=== PATIENT | female | born 1985 | race Caucasian/White ===

== ENCOUNTER 2016-07-12 05:50 | Inpatient (IN) | payer MEDICAID ==
[~2016-07-12] VITALS: Ht 160 cm; Wt 73.7 kg
[~2016-07-12 05:50] MED LIST: FERR324T6 PO; PNV1TABL43 PO
[2016-07-12] MEDS ORDERED: CEFAZOLIN 2 GM/50 ML (PMX) 50 ML IV SCH (06:00)
[2016-07-12] MEDS ORDERED: OXYTOCIN 30 UNITS/LR 500 ML IV PRN ×2 (06:00→08:30)
[2016-07-12] MEDS ORDERED: METHYLERGONOVINE 0.2 MG INJ IM PRN ×2 (06:00→08:30)
[2016-07-12] MEDS ORDERED: CARBOPROST 250 MCG INJ IM PRN ×2 (06:00→08:30)
[2016-07-12] MEDS ORDERED: MISOPROSTOL 200 MCG TAB PR PRN ×2 (06:00→08:30)
[2016-07-12] MEDS ORDERED: OXYTOCIN 30 UNITS/LR 500 ML IV SCH (06:00)
[2016-07-12 06:16] LABS: ADD SCAN DIFF NO
[2016-07-12 06:22] VITALS: Ht 160 cm; Wt 73.7 kg
[2016-07-12 06:25] LABS: BASOPHILS % 0.4 % (0.0-2.0); EOSINOPHILS # 0.2 10^3/ul (0.0-0.5); HEMATOCRIT 38.3 % (37.0-47.0); HEMOGLOBIN 13.2 g/dl (12.0-16.0); LYMPHOCYTES # 2.7 10^3/ul (0.8-2.9); MEAN CORPUSCULAR HEMOGLOBIN 29.6 pg (29.0-33.0); MEAN CORPUSCULAR HGB CONC 34.5 g/dl (32.0-37.0); MEAN CORPUSCULAR VOLUME 85.9 fl (82.0-101.0); MEAN PLATELET VOLUME 11.9 fl (7.4-10.4); MONOCYTE # 0.6 10^3/ul (0.3-0.9); NEUTROPHIL # 5.6 10^3/ul (1.6-7.5); NEUTROPHILS % 60.3 % (39.0-77.0); PLATELET COUNT 172 10^3/UL (140-415); RED BLOOD COUNT 4.46 10^6/ul (4.20-5.40); RED CELL DISTRIBUTION WIDTH 15.6 % (11.5-14.5); WHITE BLOOD COUNT 9.2 10^3/ul (4.8-10.8)
[2016-07-12 06:38] LABS: INR 0.84; PROTIME 11.5 Sec (12.2-14.2); PT RATIO 0.9
[2016-07-12 06:39] LABS: PARTIAL THROMBOPLASTIN TIME 25.9 Sec (25.0-35.0)
[2016-07-12] MEDS ORDERED: CITRIC ACID/SODIUM CITRATE 15 ML CUP ONE (07:18)
[2016-07-12] MEDS ORDERED: morphine SULFATE/PF (10 MG/10 ML) INJ ONE (07:23)
[2016-07-12] MEDS ORDERED: METOCLOPRAMIDE 10 MG INJ ONE (07:23)
[2016-07-12] MEDS ORDERED: KETOROLAC 30 MG INJ ONE (07:29)
[2016-07-12] MEDS ORDERED: CITRIC ACID/SODIUM CITRATE 15 ML CUP PO ONE (07:30)
[2016-07-12] MEDS ORDERED: PHENYLephrine (100 MCG/ML) 5ML SYG ONE (07:39)
[2016-07-12] MEDS ORDERED: ONDANSETRON 4 MG INJ IV PRN ×3 (08:00→12:30)
[2016-07-12] MEDS ORDERED: HYDROmorphONE 1 MG/ML SYG IV PRN ×6 (08:00→12:30)
[2016-07-12] MEDS ORDERED: NALOXONE (0.4 MG/ML) INJ IV PRN ×2 (08:00→12:30)
[2016-07-12] MEDS ORDERED: METOCLOPRAMIDE 10 MG INJ IV PRN (08:00)
[2016-07-12] MEDS ORDERED: DIPHENHYDRAMINE 50 MG INJ IV PRN ×3 (08:00→12:30)
[2016-07-12] MEDS ORDERED: MEPERIDINE 25 MG INJ IV PRN (08:00)
[2016-07-12] MEDS ORDERED: KETOROLAC 30 MG INJ IV PRN ×2 (08:00→12:30)
[2016-07-12] MEDS ORDERED: HYDROmorphONE (0.2 MG/ML) 10ML SYG IV PRN ×3 (08:00)
[2016-07-12] MEDS ORDERED: OXYCODONE/ACETAMINOPHEN (5/325) TAB PO PRN ×2 (08:30)
--- NOTE | 2016-07-12 08:35 | PREOPHP ---
DATE OF ADMISSION: 07/12/2016 HISTORY OF PRESENT ILLNESS: Ms. Colleen Mars is a 31-year-old 3, para 2, EDC 07/18/2016 intrauterine at 39 weeks gestational age, admitted today for elective repeat delivery. She denies any contractions, vaginal bleeding, or discharge. Her care took place at [facility]. MEDICAL HISTORY: None. MEDICATIONS: vitamins. PAST SURGICAL HISTORY: x2 previous sections. OBSTETRICAL HISTORY: x2 previous C-sections, both at 40 weeks' gestational age. GYNECOLOGIC HISTORY: 11, regular 3 to 4 days. Denies any sexually transmitted diseases. Sexually active with 1 partner. SOCIAL HISTORY: Denies any smoking, drugs or alcohol. FAMILY HISTORY: None. PHYSICAL EXAMINATION: HEENT: Within normal. LUNGS: CTA bilateral. CARDIOVASCULAR: S1, S2, regular rhythm. ABDOMEN: Gravid, nontender. Negative CVA. EXTREMITIES: Negative edema. No calf tenderness. PELVIC: Vaginal exam deferred. ASSESSMENT: A 31-year-old 3, para 2, intrauterine at 39 weeks gestational age. Previous x2, desires elective repeat delivery. PLAN: Consent for repeat . Risks, benefits and alternatives explained. All questions were answered. Dictated By: HEVER LUCAS/HARLEY Conf#: [id number] DID#: [id number] MTDD
[2016-07-12] MEDS ORDERED: ACETAMINOPHEN 1000MG/100ML IV 100 ML IVPB ONE (09:00)
[2016-07-12] MEDS: LACTATED RINGER'S 1,000 ML IV SCH ×2 (09:07→15:15)
--- NOTE | 2016-07-12 10:02 | OPR ---
DATE OF OPERATION: 07/12/2016 PRIMARY DIAGNOSES: 1. A 31-year-old 3, para 2, intrauterine at 39 weeks gestational age. 2. Previous x2. 3. Desires elective repeat delivery. 4. Declined vaginal after . POSTOPERATIVE DIAGNOSES: 1. A 31-year-old 3, para 2, intrauterine at 39 weeks gestational age. 2. Previous x2. 3. Desires elective repeat delivery. 4. Declined vaginal after . OPERATION PERFORMED: Repeat low transverse delivery via Pfannenstiel incision. SURGEON: Brad Renae MD SUPERVISOR [employer] YARD: Haley Lynn MD ANESTHESIA: Spinal. COMPLICATIONS: None. ESTIMATED BLOOD LOSS: 500 mL. FINDINGS: A viable male, 9 and 9 respectively at 1 and 5 minutes, weight 9 pounds 6 ounces. Normal uterus, tubes and ovaries. DESCRIPTION OF PROCEDURE: After explaining the risks, benefits and alternatives, the patient and co nsent signed in chart, the patient was taken to the operating room where spinal anesthesia was found to be adequate. She was then prepared and draped in normal sterile fashion in dorsal supine positi on with a leftward tilt. A Pfannenstiel skin incision was then made with a scalpel and carried to t he underlying layer of the fascia. The fascia was incised in the midline and the incision was exten ded laterally with Mills scissors. The superior aspect of the fascial incision was grasped with curv ed clamps, elevated and the underlying rectus muscles dissected off bluntly. Attention was then tur john to the inferior aspect of the incision which in similar fashion was grasped, tented up with curv ed clamps and the rectus muscles dissected off bluntly. The rectus muscle was in midline, peritoneum identified, tented up and entered sharply with Metzenbaum scissors. The peritoneal inci tamiko was extended superiorly inferiorly with good visualization of bladder. The bladder blade was t hen inserted and the vesicouterine peritoneum identified, grasped with pickups and entered sharply w ith Metzenbaum scissors. The incision was extended laterally and a bladder flap created digitally. The bladder blade was then reinserted and the lower segment incised in transverse fashion with a sc alpel. The uterine incision was extended laterally. The bladder blade was removed and the infant's head delivered atraumatically. The nose and mouth were suctioned and cord clamped and cut/delayed. The was handed off to awaiting nursery hand. The placenta was removed. The uterus was ext eriorized and cleared of all clots and debris. The uterine incision was repaired with 1-0 chromic i n a running locked fashion. A second layer of same suture was used for imbrication and obtained exc ellent hemostasis. The uterus was returned to the abdomen. The gutters were cleared of all clots. The peritoneum and rectus abdominis muscles were reapproximated with 3-0 Vicryl in interrupted fash ion. The fascia was reapproximated with 0 Vicryl in a running fashion. The skin was closed with st aples. The patient tolerated procedure well. Sponge, lap and needle counts correct x2. The patien t was taken to recovery room in stable condition. Dictated By: BRAD LUCAS/HARLEY Conf#: [id number] DID#: [id number] CC: HALEY LYNN MD;*End*
[2016-07-12] MEDS: SENNA/DOCUSATE NA (8.6MG/50MG) TAB PO SCH ×2 (11:50→21:00)
[2016-07-12] MEDS ORDERED: IBUPROFEN 600 MG TAB PO SCH (12:00)
[2016-07-12 12:05] VITALS: BP 132/76; PULSE 55; RESP 17
[2016-07-12 15:45] VITALS: BP 133/68; PULSE 61; RESP 16
[2016-07-12] MEDS: IBUPROFEN 600 MG TAB PO SCH (18:00)
[2016-07-13] VITALS: BP 106/60; PULSE 60; RESP 20
[2016-07-13] MEDS: LACTATED RINGER'S 1,000 ML IV SCH ×3 (00:03→19:30)
[2016-07-13 03:56] VITALS: BP 102/59; PULSE 75; RESP 18
--- NOTE | 2016-07-13 07:54 | QN ---
Documentation Comment pod 1 patient seen and evaluated no complaint linder clear vs stable afebrile abd dressing clean no distention nt extremity no edema no calf tenderness a/ sp cd pod 1 doing well p/ f/u cbc remove linder today encourage ambulation HEVER RUTH MD July 13, 2016 07:54
[2016-07-13 08:00] VITALS: BP 120/70; PULSE 69; RESP 18
[2016-07-13 08:19] LABS: ADD SCAN DIFF NO
--- NOTE | 2016-07-13 08:30 | PN ---
Date/Time of Note Date/Time of Note DATE: 07/13/16 TIME: 08:28 Assessment/Plan VTE Prophylaxis VTE Prophylaxis Intervention: ambulation Lines/Catheters IV Catheter Type (from Nrsg): Peripheral IV Subjective 24 Hr Interval Summary Free Text/Dictation anesthesia Note: A 31 year female S/P duramorph for post op pain is doing fine, no complaimnts. headache, itching, n/V. backisclean. Exam/Review of Systems Vital Signs Vitals Vital Signs Date Time Temp Pulse Resp B/P Pulse Ox O2 Delivery O2 Flow Rate FiO2 07/13/16 04:18 98 21 07/13/16 03:56 98.5 75 18 102/59 Room Air Intake and Output 07/12/16 07/12/16 07/13/16 15:00 23:00 07:00 Intake Total 2375 ml 1435 ml 815 ml Output Total 450 ml 550 ml 750 ml Balance 1925 ml 885 ml 65 ml Results Result Diagram: 07/12/16 0605 Medications Medications Current Medications Lactated Ringer's (Lr) 1,000 ml @ 125 mls/hr Q8H IV Last administered on 00:03; Admin Dose 125 MLS/HR; Start 07/12/16 at 08:18 Oxycodone/ Acetaminophen (Percocet (5/ 325)) 1 tab Q4H PRN PO PAIN LEVEL 4-6; Start 07/12/16 at 08:30 Oxycodone/ Acetaminophen (Percocet (5/ 325)) 2 tab Q4H PRN PO PAIN LEVEL 7-10; Start 07/12/16 at 08:30 Simethicone (Mylicon) 160 mg Q8H PRN PO DISTENSION/GAS/BLOATING; Start at 08:30 Senna/Docusate Sodium 1 tab 1 tab BID PO ; Start 07/12/16 at 09:00 Oxytocin/Lactated Ringer's 500 ml @ 0 mls/hr ONCE PRN IV For Hemorrhage Management Last administered on 07/12/16 09:10; Admin Dose 125 MLS/HR; Start at 08:30 Methylergonovine Maleate (Methergine) 0.2 mg ONCE PRN IM VAGINAL BLEEDING; Start 07/12/16 at 08:30 Carboprost Tromethamine (Hemabate) 250 mcg ONCE PRN IM VAGINAL BLEEDING; Start 07/12/16 at 08:30 Misoprostol (Cytotec) 1,000 mcg ONCE PRN [place] VAGINAL BLEEDING; Start 07/12/16 at 08:30 Naloxone HCl (Narcan) 0.1 mg Q2M PRN IV FOR RESP RATE 8 OR LESS; Start at 12:30; Stop 07/13/16 at 12:29 Ketorolac Tromethamine (Toradol) 30 mg Q6H PRN IV PAIN; Start 07/12/16 at 12:30 ; Stop 07/13/16 at 12:29 Hydromorphone HCl (Dilaudid) 1 mg Q3H PRN IV BREAKTHROUGH PAIN; Start 07/12/16 at 12:30; Stop 07/13/16 at 12:29 Hydromorphone HCl (Dilaudid) 0.2 mg Q3H PRN IV PAIN LEVEL 1-5; Start 07/12/16 at 12:30; Stop 07/13/16 at 12:29 Hydromorphone HCl (Dilaudid) 0.4 mg Q3H PRN IV PAIN LEVEL 6-10; Start 07/12/16 at 12:30; Stop 07/13/16 at 12:29 Diphenhydramine HCl (Benadryl) 25 mg Q6H PRN IV ITCHING; Start 07/12/16 at 12: 30; Stop 07/13/16 at 12:29 Ondansetron HCl (Zofran Inj) 4 mg Q6H PRN IV NAUSEA AND/OR VOMITING; Start at 12:30; Stop 07/13/16 at 12:29 Ibuprofen (Motrin) 600 mg Q6 PO ; Start 07/13/16 at 12:30 BERKLEY RAMIREZ MD July 13, 2016 08:30
[2016-07-13 08:32] LABS: BASOPHILS % 0.3 % (0.0-2.0); EOSINOPHILS # 0.1 10^3/ul (0.0-0.5); EOSINOPHILS % 1.1 % (0.0-7.0); HEMATOCRIT 31.2 % (37.0-47.0); HEMOGLOBIN 10.6 g/dl (12.0-16.0); LYMPHOCYTES # 2.2 10^3/ul (0.8-2.9); LYMPHOCYTES % 19.9 % (15.0-51.0); MEAN CORPUSCULAR HEMOGLOBIN 29.5 pg (29.0-33.0); MEAN CORPUSCULAR VOLUME 86.9 fl (82.0-101.0); MEAN PLATELET VOLUME 11.8 fl (7.4-10.4); MONOCYTE # 0.8 10^3/ul (0.3-0.9); MONOCYTES % 6.8 % (0.0-11.0); NEUTROPHILS % 71.1 % (39.0-77.0); PLATELET COUNT 157 10^3/UL (140-415); RED BLOOD COUNT 3.59 10^6/ul (4.20-5.40); RED CELL DISTRIBUTION WIDTH 15.8 % (11.5-14.5); WHITE BLOOD COUNT 11.2 10^3/ul (4.8-10.8)
[2016-07-13] MEDS: SENNA/DOCUSATE NA (8.6MG/50MG) TAB PO SCH ×2 (10:01→21:00)
[2016-07-13] MEDS: IBUPROFEN 600 MG TAB PO SCH ×2 (11:39)
[2016-07-13 16:15] VITALS: BP 109/63; PULSE 69; RESP 18
[2016-07-13 20:30] VITALS: BP 121/67; PULSE 69; RESP 18
[2016-07-14] MEDS: LACTATED RINGER'S 1,000 ML IV SCH ×2 (00:18→08:18)
[2016-07-14] MEDS: IBUPROFEN 600 MG TAB PO SCH ×6 (00:49→23:38)
[2016-07-14 04:43] VITALS: BP 117/73; PULSE 66; RESP 18
[2016-07-14 08:00] VITALS: BP 115/67; PULSE 74; RESP 18
[2016-07-14] MEDS: SENNA/DOCUSATE NA (8.6MG/50MG) TAB PO SCH ×2 (08:13→21:01)
[2016-07-14 15:56] VITALS: BP 111/72; PULSE 83; RESP 18
[2016-07-14 20:00] VITALS: BP 118/68; PULSE 118; RESP 19
[2016-07-14 23:45] VITALS: BP 130/75; PULSE 65; RESP 19
[2016-07-15 04:15] VITALS: BP 118/77; PULSE 58; RESP 58
[2016-07-15] MEDS: IBUPROFEN 600 MG TAB PO SCH ×4 (05:32→23:51)
[2016-07-15 08:00] VITALS: BP 117/70; PULSE 64; RESP 18
[2016-07-15] MEDS: SENNA/DOCUSATE NA (8.6MG/50MG) TAB PO SCH ×2 (11:09→21:06)
--- NOTE | 2016-07-15 12:22 | PN ---
Date/Time of Note Date/Time of Note DATE: 07/15/16 TIME: 12:20 OB Subjective Subjective Subjective Postop day #3 status post repeat Patient has no complaints OB Objective Objective Objective Positive voiding, positive flatus/BM Patient is ambulating and tolerating regular diet HEENT: WNL Heart: Rhythm Normal Lungs: Clear, Equal Abdomen: WNL (Incision C/D/I) Extremities: Normal Reflexes: Normal OB Assessment/Plan Other Assessment: Postop day #3 status post repeat Patient is stable and afebrile Other plan: Continue with present management Plan to D/C home tomorrow KVNG FLORES MD July 15, 2016 12:22
[2016-07-15 16:28] VITALS: BP 121/75; PULSE 66; RESP 18
[2016-07-15 19:30] VITALS: BP 127/77; PULSE 66; RESP 19
[2016-07-16 04:15] VITALS: BP 126/81; PULSE 67; RESP 18
[2016-07-16] MEDS: IBUPROFEN 600 MG TAB PO SCH ×2 (05:34→12:04)
[2016-07-16 08:00] VITALS: BP 118/76; PULSE 79; RESP 17
[2016-07-16] MEDS: SENNA/DOCUSATE NA (8.6MG/50MG) TAB PO SCH (09:00)
--- NOTE | 2016-07-16 12:34 | DS ---
Date/Time of Note Date/Time of Note DATE: 07/16/16 TIME: 12:33 Obstetrical Discharge Record Final Diagnosis Final Diagnosis: Term delivered Section Section: Repeat Condition on Discharge Physical Assessment Voiding: Yes Bowel Movement: Yes Breast: Soft, non-tender Fundus: Firm Abdomen and Incision: CDI Patient Condition: Stable MIGUELANGEL CHRISTINA MD July 16, 2016 12:34
== END 2016-07-16 14:35 | disposition home or self-care (01) | DRG 766 ==
LOC: L-D 05:50 → PP1 12:03
PROVIDERS: ADMIT Obstetrics & Gynecology; ATTEND Obstetrics & Gynecology
PROC: 10D00Z1 Extraction of Products of Conception, Low, Open Approach (ICD-10-PCS; principal; 2016-07-12 07:30)
DX: O34.211 Maternal care for low transverse scar from previous cesarean delivery (principal); Z37.0 Single live birth; Z3A.39 39 weeks gestation of pregnancy
CPT/HCPCS: 85025; 85610; 85730; 86592; 86850; 86900; 86901; 87340; 94760; 99464; J0131; J0690; J1885; J2274; J2370; J2590; J2765; J7120